=== PATIENT | female | born 1985 | race Caucasian/White ===

== ENCOUNTER 2017-04-13 07:09 | Day surgery (SDC) | payer OTHER ==
[2017-04-13] MEDS ORDERED: Bupivacaine 0.25%/EPINEPHrine 1:200,000 10 ML SDV ONE (07:24)
--- NOTE | 2017-04-13 07:37 | PCM.PREANE ---
Preanesthetic Assessment - Anesthesia/Transfusion/Family Hx Anesthesia History: Prior Anesthesia Without Reaction Other Type of Anesthesia Reaction Comment: hx: motion sickness, denies any known problem with teeth extractions Family History of Anesthesia Reaction: No Transfusion History: No Prior Transfusion(s) Intubation History: Unknown - Review of Systems General: No Symptoms Pulmonary: No Symptoms Cardiovascular: No Symptoms Gastrointestinal: No Symptoms Neurological: No Symptoms Other: Reports: None - Physical Assessment O2 Sat by Pulse Oximetry: 100 Respiratory Rate: 16 Vital Signs: Last Vital Signs Temp 37.1 C 04/13/17 07:32 Pulse 75 04/13/17 07:32 Resp 16 04/13/17 07:32 BP 124/90 04/13/17 07:32 Pulse Ox 100 04/13/17 07:32 Height: 1.73 m Weight: 65.771 kg ASA Class: 1 Mental Status: Alert & Oriented x3 Airway Class: Mallampati = 2 Dentition: Reports: Normal Dentition Thyro-Mental Finger Breadths: 3 Mouth Opening Finger Breadths: 3 ROM/Head Extension: Full Lungs: Clear to Auscultation, Normal Respiratory Effort Cardiovascular: Regular Rate, Regular Rhythm - Lab Values: Laboratory Last Values Urine HCG, Qual NEGATIVE (NEGATIVE) 04/13/17 07:15 - Allergies Allergies/Adverse Reactions: Allergies Allergy/AdvReac Type Severity Reaction Status Date / Time cefaclor [From Ceclor] Allergy Seizure Verified 11/25/14 11:35 - Blood Blood Available: No - Anesthesia Plan Pre-Op Medication Ordered: None - Acknowledgements Anesthesia Type Planned: General Anesthesia Pt an Appropriate Candidate for the Planned Anesthesia: Yes Alternatives and Risks of Anesthesia Discussed w Pt/Guardian: Yes Pt/Guardian Understands and Agrees with Anesthesia Plan: Yes PreAnesthesia Questionnaire HEENT History: Reports: None Gastrointestinal History: Reports: None Other Gastrointestinal History: Recently feel throat irritation 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 [No Known Home Meds] 03/20/17 [History] - CURRENT (IN HOUSE) MEDS Current Meds: Current Medications Hydrocodone Bitart/Acetaminophen ([place] 325-5 Mg) 1 tab PO Q4H PRN PRN Reason: Pain Bupivacaine HCl (Sensorcaine-Mpf 0.25%) 10 ml INJECT ONETIME ONE Stop: 04/13/17 09:01 Clindamycin Phosphate 600 mg/ (Premix) 50 mls @ 150 mls/hr IV ONETIME ONE Stop: 04/13/17 09:19 Lactated Ringer's (Ringers, Lactated) 1,000 mls @ 125 mls/hr IV ASDIRECTED KELSEY Discontinued Medications Bupivacaine HCl/Epinephrine Bitart (Marcaine 0.25%/Epinephrine 1:200,000) Confirm Administered Dose 20 ml .ROUTE .STK-MED ONE Stop: 04/13/17 07:25
[2017-04-13] MEDS ORDERED: Ondansetron 4 MG/2 ML SDV ONE (07:51)
[2017-04-13] MEDS ORDERED: Lidocaine 2% 5 ML SDV ONE (07:51)
[2017-04-13] MEDS ORDERED: Midazolam 1 MG/ML 2 ML SDV ONE (07:52)
[2017-04-13] MEDS ORDERED: fentaNYL 100 MCG/2 ML SDV ONE (07:52)
[2017-04-13] MEDS ORDERED: Propofol 200 MG/20 ML SDV ONE (07:52)
[2017-04-13] MEDS ORDERED: Bupivacaine 0.25% 10 ML SDV ONE (08:04)
[2017-04-13] MEDS ORDERED: Scopolamine 1.5 MG Transdermal Patch ONE (08:13)
[2017-04-13] MEDS ORDERED: Dexamethasone 4 MG/ML 5 ML MDV ONE (08:29)
[2017-04-13] MEDS ORDERED: diphenhydrAMINE 50 MG/ML SDV ONE (08:29)
[2017-04-13] MEDS ORDERED: fentaNYL 100 MCG/2 ML SDV IVPUSH PRN (08:45)
[2017-04-13] MEDS ORDERED: Acetaminophen/HYDROcodone 325-5 MG Tab PO PRN (09:00)
[2017-04-13] MEDS ORDERED: Lactated Ringers 1,000 ML IV SCH (09:00)
[2017-04-13] MEDS ORDERED: Bupivacaine 0.25% 10 ML SDV INJECT ONE (09:00)
[2017-04-13] MEDS ORDERED: Clindamycin Phosphate in D5W 600 MG in Premix Bag 1 BAG IV ONE ×2 (09:00)
[2017-04-13] MEDS ORDERED: Ketorolac 30 MG/ML SDV IVPUSH PRN (09:04)
[2017-04-13 10:27] VITALS: BP 104/58
--- NOTE | 2017-04-13 14:46 | PCM.OPNOTE ---
- General Post-Op/Procedure Note Date of Surgery/Procedure: 04/13/17 Operative Procedure(s): excision of left dorsal wrist ganglion Pre Op Diagnosis: left dorsal wrist ganglion Post-Op Diagnosis: Same Anesthesia Technique: General LMA, Local Primary Surgeon: Viktoriya Carranza General Laborer: Chrystal Meléndez Complications: None Condition: Good Free Text/Narrative:: Intake & Output 04/12/17 04/13/17 04/13/17 23:59 07:59 15:59 Intake Total 1200 Balance 1200 [id number]
--- NOTE | 2017-04-13 15:12 | OR ---
SURGEON: ERON SYED MD DATE OF PROCEDURE: 04/13/2017 PREOPERATIVE DIAGNOSIS: Left dorsal wrist ganglion. POSTOPERATIVE DIAGNOSIS: Left dorsal wrist ganglion. PROCEDURE: Excision of the left dorsal wrist ganglion. INTAKE NURSE: PK Jurado ANESTHESIA: General LMA with local. INDICATIONS: Ms. Weber is a 31-year-old female with a left dorsal wrist ganglion that is causing pain. Risks and benefits of excision were discussed with her and she was in agreement to proceed. Risks were including, but not limited to, bleeding, infection, damage to underlying or overlying structures, possible need for future interventions, possible scarring. PROCEDURE IN DETAIL: After informed consent was obtained and placed on the chart, the patient was brought to operating theater and laid in supine position. After adequate general LMA anesthesia and local anesthesia was infiltrated, the area was prepped and draped, and a time-out was completed to confirm side and site. Attention was then paid to dissection of the dorsal ganglion itself and dissection was carried down circumferentially. The stalk was located, transected, and then the dorsal joint capsule was repaired using 4-0 Monocryl stitches in a horizontal mattress fashion after copious irrigation. Once adequately repaired, attention was then paid to copious irrigation and closure of the skin using 4-0 Monocryl stitch in a running subcuticular fashion with several deep dermals. This was dressed with a Steri-Strip and a wrist cock-up splint with a 2- to 4-inch Alonzo wrap. The patient tolerated this well. All counts and needles were correct at the end of the case. FOLLOWUP INSTRUCTIONS: The patient will maintain her plaster splint in place until followup and will call with any problems, questions, or concerns. She was given a prescription for Lamont. HEGGTHE / IRVINGL /[id number]
== END 2017-04-13 10:25 | disposition home or self-care (01) ==
LOC: MW.SDS 07:09
PROVIDERS: ATTEND Plastic Surgery
DX: M67.432 Ganglion, left wrist (principal); Z88.1 Allergy status to other antibiotic agents; Z98.818 Other dental procedure status; Z98.890 Other specified postprocedural states; Z87.891 Personal history of nicotine dependence
CPT/HCPCS: 25111; 81025; 88304; A9270; J1100; J1200; J1885; J2250; J2405; J3010; 01810; J2704

== ENCOUNTER 2025-04-10 02:12 | Emergency (ER) | payer OTHER ==
[2025-04-10 03:45] VITALS: BP 121/71; PULSE 68
== END 2025-04-10 03:41 | disposition home or self-care (01) ==
LOC: MW.ED 02:12
DX: R20.2 Paresthesia of skin (principal); T36.8X5A Adverse effect of other systemic antibiotics, initial encounter; Z79.899 Other long term (current) drug therapy; Z88.1 Allergy status to other antibiotic agents; Z75.3 Unavailability and inaccessibility of health-care facilities
CPT/HCPCS: 99283; A9270